=== PATIENT | female | born 1960 | race African-American/Black ===

== ENCOUNTER → 2016-12-21 | Outpatient (CLI) | payer BC ==
[~2016-12-21] MED LIST: ALBUTEROL17 GM
--- NOTE | ~2016-12-21 | US98 ---
[facility] A Service of [facility] & [facility] RADIOLOGY TEXT RESULTS PATIENT: ALEX NEUMANN LOCATION: [facility] : 62 UNIT #: [id number] AGE: [address]: Maximiliano Rios MD SEX: F ORDER DR: [id number] [facility] [address] [place], [place] [address] [id number] O MR#: [id number] Acc #: [id number] NAME: ALEX NEUMANN : 1960 SEX: F STUDY DATE/TIME: 12/21/2016 9:42 UNIT: [facility] ROOM: STUDY DESCRIPTION: US Pelvic Non-OB Complete Attending Physician: Maximiliano Rios M.D. Referring Physician: Maximiliano Rios M.D. Ordering Physician: Maximiliano Rios M.D. Primary Care Physician: Maximiliano Rios M.D. MEDICAL IMAGING REPORT This report is preliminary unless electronic signature is present EXAM Pelvic ultrasound COMPARISON None. INDICATION 56-year-old female with postmenopausal vaginal bleeding for 1 month. FINDINGS Uterus measures 8 cm x 4.6 x 5.9 cm. Endometrial stripe thickness is 8 mm. Right ovary measures 1.8 cm x 1 cm x 1.7 cm and demonstrates internal Doppler flow. Left ovary measures 1.5 cm x 2 cm x approximately 1.7 cm and has internal Doppler flow. There is trace free fluid in the pelvic cul-de-sac. IMPRESSION 1. Trace free fluid in the pelvic cul-de-sac. 2. Normal sonographic evaluation of the ovaries. Normal uterine size. 3. Endometrial stripe thickness measuring up to 8 mm. If the patient is post menopausal then this is considered mildly thickened. However, if the patient is perimenopausal this may be within normal limits. If the patient is menopausal, consider obstetrical consultation and possible endometrial biopsy. Dictated by... Maximiliano Platt M.D. THIS IS AN ELECTRONICALLY VERIFIED REPORT Maximiliano Platt M.D. at 12/26/2016 1:57 PM BLM/rnr STS. [facility] A Service of [facility] & [facility] RADIOLOGY TEXT RESULTS PATIENT: ALEX NEUMANN LOCATION: [facility] #: [id number] : 62 UNIT #: [id number] AGE: [address]: Maximiliano Rios MD SEX: F ORDER DR: TD: 12/21/2016 23:24 JOB #: [id number] MEDICAL IMAGING REPORT Page 1 of 1 COPY
== END | disposition home or self-care (01) ==
LOC: CGUS 07:30
DX: N95.0 Postmenopausal bleeding (principal); R93.8 Abnormal findings on diagnostic imaging of other specified body structures
CPT/HCPCS: 76830; 76856